=== PATIENT | male | born 1995 | race Caucasian/White ===

== ENCOUNTER 2017-01-18 11:20 | Emergency (ER) | payer OTHER ==
[~2017-01-18] VITALS: Ht 177.8 cm; Wt 74.8 kg
[2017-01-18] MEDS ORDERED: AZITHROMYCIN 250 MG TABLET PO ONE (12:00)
[2017-01-18] MEDS ORDERED: LIDOCAINE VISCUS 2% 15 ML UDC MM ONE (12:15)
[2017-01-18] MEDS ORDERED: AZITHROMYCIN 250 MG TABLET ONE (12:22)
--- NOTE | 2017-01-18 12:28 | NUR ---
PT WAS EVALUATED BY DR ROSARIO. PT WAS MEDICATED ACCORDING TO ER MD ORDERS. PT TOLERATED TO MEDICATION WITHOUT COMPLICATIONS. PT WAS D/C TO HOME. D/C INSTRUCTIONS GIVEN TO THE PT.
[2017-01-18 12:29] VITALS: BP 132/78
[2017-01-18] MEDS ORDERED: LIDOCAINE VISCUS 2% 15 ML UDC ONE (12:32)
== END 2017-01-18 12:30 | disposition home or self-care (01) ==
LOC: ER 11:20
DX: J02.9 Acute pharyngitis, unspecified (principal); F17.200 Nicotine dependence, unspecified, uncomplicated
CPT/HCPCS: 99283; A4663; Q0144